=== PATIENT | female | born 1995 | race Caucasian/White ===

== ENCOUNTER 2019-07-13 12:22 | Outpatient (CLI) | payer BC, SELFPAY ==
--- NOTE | ~2019-07-13 | MR_ITS ---
EXAMINATION: MR brain/brain stem wo/w con EXAM DATE: 07/13/2019 13:23 INDICATION: Headache. TECHNIQUE: Magnetic resonance imaging (MRI) of the brain/brain stem obtained without contrast. Sagit wesley T1, axial diffusion, gradient echo (T2*), T1, T2, FLAIR sequences obtained. Patient was then inj ected with 15 cc intravenous Multihance contrast. Axial and coronal postcontrast T1 weighted sequence s obtained. There is no prior study for comparison. FINDINGS: There are no areas of restricted diffusion to suggest acute infarction. There is no acute hemorrhage seen on the T2*, a hemosiderin sensitive sequence. No intraparenchymal brain mass. The ve ntricles are normal in size. There are no extra-axial collections. Flow voids are seen in the cereb ral arteries on the T2-weighted sequences consistent with their expected patency. The orbits are unr emarkable. Soft tissue is unremarkable. There are no areas of abnormal enhancement on the postcont rast images. Small to moderate-sized right maxillary sinus mucous retention cyst. No sinus air-fluid levels. IMPRESSION: 1. Normal brain MRI examination. Reviewed, dictated and finalized at location A. TING SUPERVISOR
[2019-07-13 13:04] LABS: Blood Urea Nitrogen 6 mg/dL (8-26); Estimated Glomerular Filt Rate > 60
== END 2019-07-13 12:23 | disposition home or self-care (01) ==
PROVIDERS: PCP Family Medicine; Visit Provider Nurse Practitioner Family
DX: R51 Headache (principal)
CPT/HCPCS: 70553; A9577

== ENCOUNTER 2019-08-03 10:22 | Emergency (ER) | payer BC, SELFPAY ==
--- NOTE | ~2019-08-03 | XR_ITS ---
EXAMINATION: XR chest 2V DATE: 08/03/2019 11:42 INDICATION: Transient alteration of awareness, heart palpitations TECHNIQUE: AP and lateral views of the chest are obtained. COMPARISON: None available FINDINGS: The lungs are free of acute opacities. There is no pleural effusion or pneumothorax. The ca rdiomediastinal silhouette is normal. The visualized bones and soft tissues are unremarkable. IMPRESSION: 1. No acute cardiopulmonary abnormality. Reviewed, dictated and finalized at location A. H SHEETER
[2019-08-03 10:34] VITALS: BP 132/83; PULSE 100; RESP 17; TEMP 36.5; O2SAT 100
--- NOTE | 2019-08-03 10:44 | ED.SYNCOPE ---
HPI - Syncope General Chief Complaint: Dizziness Stated Complaint: dizzy Time Seen by Provider: 08/03/19 10:32 Source: patient and RN notes reviewed Mode of arrival: ambulatory Limitations: no limitations History of Present Illness HPI narrative: A 23 y/o female presents to the ED started Topamax 1.5 weeks ago dizziness syncope generalized weakness was in [place] on Thursday in the shower and vision became black and lowered herself to the floor was on the floor for a couple seconds rapid HR and dizzy - then started to have an anxiety attack MD complaint: loss of consciousness Related Data Home Medications Medication Instructions Recorded Confirmed cyclobenzaprine 10 mg tablet 10 mg PO ONCE tablet 05/04/19 gabapentin 300 mg capsule 300 mg PO TID 05/04/19 norgestimate 0.25 mg-ethinyl 1 tablet PO DAILY 05/04/19 estradiol 35 mcg tablet naltrexone 3 mg BYMOUTH DAILY 08/03/19 08/03/19 Allergies Allergy/AdvReac Type Severity Reaction Status Date / Time adhesive tape Allergy Rash Verified 08/03/19 10:39 [facility] Social History Social History Smoking status: Never smoker Alcohol intake: never Gender identity (if verbalized by the patient): Female Course Vital Signs Vital signs: Vital Signs Temperature 97.7 F 08/03/19 10:34 Pulse Rate 100 08/03/19 10:34 Respiratory Rate 17 08/03/19 10:34 Blood Pressure 132/83 08/03/19 10:34 Pulse Oximetry 100 08/03/19 10:34 Temperature 97.7 F 08/03/19 10:34 Pulse Rate 100 08/03/19 10:34 Respiratory Rate 17 08/03/19 10:34 Blood Pressure 132/83 08/03/19 10:34 Pulse Oximetry 100 08/03/19 10:34 Discharge Plan Discharge Prescriptions: No Action cholecalciferol (vitamin D3) 50,000 unit capsule 50,000 unit PO WEEKLY Qty: 8 RF: 0 nortriptyline 50 mg capsule 50 mg PO DAILY Qty: 30 RF: 2 cyclobenzaprine 10 mg tablet 10 mg PO ONCE RF: 0 gabapentin 300 mg capsule 300 mg PO TID RF: 0 norgestimate-ethinyl estradiol [Sprintec (28)] 0.25-35 mg-mcg tablet 1 tablet PO DAILY RF: 0 naltrexone 3 mg bottle 3 mg BYMOUTH DAILY RF: 0 phentermine 37.5 mg capsule 37.5 mg PO DAILY Qty: 30 RF: 0
--- NOTE | 2019-08-03 10:48 | ED.DIZZY ---
HPI - Dizziness General Chief Complaint: Dizziness Stated Complaint: dizzy Time Seen by Provider: 08/03/19 10:32 Source: patient and RN notes reviewed Mode of arrival: ambulatory Limitations: no limitations History of Present Illness HPI Narrative: A 23 y/o female presents to the ED with intermittent lightheadedness for the past 6 days. She states that she flew down to [place] early Thursday morning, so she took a nap once she got down there and when she woke up she went to take a shower. She reports once she got in the hot shower that she began to feel lightheaded and her vision began to go black, so she lowered herself to the floor and believes that she had a couple seconds of LOC. She notes that she got up and went to a hockey game and was still feeling lightheaded, generalized weakness, and fatigued. She states that once she got back from the hockey game that she was playing a game when she began to feel anxious and felt her heart racing, so she went and laid down. She reports that she had another episode like this today while she was at work, so she decided to come to the ED. She also notes that she started Topamax about 1.5 weeks ago. She denies any N/V/D or ABD pain. MD elicited complaint: lightheadedness Pertinent past history: anemia Onset (ago): day(s) (6) Timing: intermittent Description: lightheadedness Associated symptoms: syncope, weakness (generalized), palpatations (heart racing) and other (fatigue and anxious) Related Data Home Medications Medication Instructions Recorded Confirmed cyclobenzaprine 10 mg tablet 10 mg PO ONCE tablet 05/04/19 gabapentin 300 mg capsule 300 mg PO TID 05/04/19 norgestimate 0.25 mg-ethinyl 1 tablet PO DAILY 05/04/19 estradiol 35 mcg tablet naltrexone 3 mg BYMOUTH DAILY 08/03/19 08/03/19 Allergies Allergy/AdvReac Type Severity Reaction Status Date / Time adhesive tape Allergy Rash Verified 08/03/19 10:39 Review of Systems Review of Systems: All systems reviewed & are unremarkable except as noted in HPI and below Constitutional: Constitutional: Reports fatigue and Reports weakness (generalized) Cardiovascular: Cardiovascular: Reports lightheadedness and Reports palpitations Gastrointestinal: Gastrointestinal: Denies abdominal pain, Denies diarrhea, Denies nausea and Denies vomiting Psychiatric: Psychiatric: Reports anxiety PMFSH Past Medical History Medical History (Updated 08/03/19 @ 12:45 by Sunil Barker MD) Anemia Anxiety Bipolar 1 disorder Depression Fatigue Fibromyalgia History of ovarian cyst Insomnia Iron deficiency anemia Low vitamin D level Restless legs syndrome (RLS) Thoracic degenerative disc disease Surgical History Surgical History (Updated 08/03/19 @ 11:16 by Alex Silva) No history of previous surgery Social History Social History Smoking status: Never smoker Alcohol intake: never Gender identity (if verbalized by the patient): Female Exam Narrative: Exam Narrative: GENERAL: Well-appearing, well-nourished, and in no acute distress. HEAD: Normocephalic, atraumatic. EYES: PERRLA and EOMI. no nystagmus. ENT: Mucous membranes moist. TM's normal bilaterally. CHEST: Clear to auscultation. No respiratory distress. HEART: Regular rate and rhythm. Normal peripheral pulses. ABDOMEN: Soft, nontender, nondistended. EXTREMITIES: Normal range of motion. No edema. SKIN: Warm, dry, no rash. NEURO: No focal deficits. Alert and oriented x3. Course Course Emergency Course: Appears well. No ectopy on monitor. Has had some dizziness with position change from sitting to standing. Hydrated, still with a little dizziness. Will give some meclizine as patient may be having issues with her inner ear given recent travel. Recommend f/u with PCP, if recurrent issues may need holter monitor. Patient did not describe true hallucinations and the one potential syncopal episode may have been related to anxie
--- NOTE | 2019-08-03 10:54 | ECG_ITS ---
Measurements Intervals [place] Rate: 95 P: 52 WI: 147 QRS: 47 QRSD: 81 T: 25 QT: 338 QTc: 425 Interpretive Statements SINUS RHYTHM BASELINE ARTIFACT- I, II, AVR, AVL, AVF NORMAL ECG Electronically Signed On 08-03-2019 11:47:00 INSURANCE OFFICE MANAGER by Jhonny Pat D.O.
[2019-08-03] MEDS: SODIUM CHLORIDE 0.9% IV 1,000 ML 999 ML IV CONT (11:04)
[2019-08-03 11:07] VITALS: BP 109/79; PULSE 97
[2019-08-03 11:08] VITALS: BP 117/78; PULSE 99
[2019-08-03 11:08] LABS: Basophils Percent Auto 0.7 % (0.2-1.2); Eosinophils Absolute Auto 0.1 K/mm3 (0-0.3); Eosinophils Percent Auto 1.3 % (0-4.4); Hematocrit 41.9 % (37.0-47.0); Hemoglobin 13.5 g/dL (12.0-15.0); Immature Granulocyte Absolute 0.04 K/mm3 (0.00-0.031); Immature Granulocyte Percent A 0.7 % (0-0.5); Lymphocytes Absolute Auto 1.72 K/mm3 (0.9-3.2); Lymphocytes Percent Auto 31.4 % (18.3-44.2); Mean Corpuscular HGB Conc 32.2 g/dl (32-36); Mean Corpuscular Hemoglobin 28.5 pg (26-34); Mean Corpuscular Volume 88.4 fl (80-100); Mean Platelet Volume 8.9 fl (7.4-10.4); Monocytes Absolute Auto 0.5 K/mm3 (0.1-0.6); Monocytes Percent Auto 9.9 % (2.6-8.5); Neutrophils Absolute Auto 3.1 K/mm3 (1.3-6.7); Platelet Count Result 340 k/mm3 (150-375); Red Blood Count 4.74 M/mm3 (4.2-5.4); Red Cell Distribution Width 11.6 % (11.5-14.5); White Blood Count 5.5 K/mm3 (4.5-10.0)
[2019-08-03 11:10] VITALS: BP 113/82; PULSE 110
[2019-08-03 11:20] LABS: Blood Urea Nitrogen 7 mg/dL (7-17); Carbon Dioxide 23 mmol/L (22-30); Chloride 101 mmol/L (98-107); Estimated CRCL calculation 98 ml/min; Estimated Glomerular Filt Rate > 60; Glucose 97 mg/dL (65-105); Potassium 3.8 mmol/L (3.4-5.0); Sodium 139 mmol/L (137-145)
[2019-08-03 11:26] LABS: Add Urine Microscopic? YES; Appearance Urine Cloudy (Clear); Bacteria Urine Trace /hpf; Bilirubin Urine Negative (Negative); Blood Urine Negative (Negative); Color Urine Straw (Yellow); Glucose Urine UA Negative (Negative); Ketones Urine Negative (Negative); Leukocyte Esterase Ur Trace LEU/UL (Negative); Mucus Urine Rare /lpf; Nitrate Urine Negative (Negative); Protein Urine Negative (Negative); RBC Urine 0-2 /hpf (0-2); Specific Grav Ur 1.008 (1.001-1.035); Squamous Epithelial Cell Urine Many /hpf (Few); Urobilinogen Urine Negative mg/dL (<2.0); WBC Urine 0-3 /hpf
[2019-08-03 11:34] LABS: Troponin I < 0.012 ng/mL (0.000-0.034)
[2019-08-03 12:08] VITALS: BP 117/78; PULSE 101; RESP 16; O2SAT 100
[2019-08-03 13:25] VITALS: BP 134/84; PULSE 82; RESP 17; O2SAT 100
== END 2019-08-03 13:26 | disposition home or self-care (01) ==
PROVIDERS: Emergency Provider Emergency Medicine; PCP Family Medicine
DX: R42 Dizziness and giddiness (principal); D64.9 Anemia, unspecified; F41.9 Anxiety disorder, unspecified; F31.9 Bipolar disorder, unspecified; M79.7 Fibromyalgia
CPT/HCPCS: 36415; 71046; 80048; 81001; 81025; 83735; 84484; 85025; 93005; 96360; 99284; J7030

== ENCOUNTER 2019-08-10 14:22 | Outpatient (CLI) | payer BC, SELFPAY ==
[2019-08-10 15:44] LABS: Thyroid Stimulating Hormone 0.418 uIU/mL (0.465-4.680)
[2019-08-10 15:49] LABS: Vitamin D 25 Hydroxy 79.8 ng/mL
[2019-08-12 09:30] LABS: CMV IgG Antibody <0.60 U/mL (<0.60)
[2019-08-13 13:26] LABS: CMV IgM Antibody <30.00 AU/mL (<30.00)
[2019-08-15 07:37] LABS: EBV Nuclear Ab Interpretation Past; EBV Virus Capsid Ag IgM Ab <36.00 U/mL (<36.00)
== END 2019-08-10 14:23 | disposition home or self-care (01) ==
PROVIDERS: PCP Family Medicine; Visit Provider Nurse Practitioner Family
DX: R53.83 Other fatigue (principal)
CPT/HCPCS: 36415; 82306; 82607; 84443; 86644; 86645; 86664; 86665

== ENCOUNTER 2019-08-19 07:37 | Outpatient (CLI) | payer BC, SELFPAY ==
--- NOTE | ~2019-08-19 | US_ITS ---
EXAMINATION: US abdomen complete EXAM DATE: 08/19/2019 08:37 INDICATION: Left upper quadrant abdominal pain. TECHNIQUE: Multiple grayscale and Doppler images of the complete abdomen were obtained (by a technolo gist who performed the scan) and subsequently reviewed. Comparison is made to prior examination from 08/14/2016. FINDINGS: The abdominal aorta is normal in caliber. Visualized portion IVC is patent. The pancreatic head a nd body are normal in appearance. The pancreatic tail is not visualized. The liver has normal echogenicity and contour. There are no focal liver lesions identified. There is no evidence of intrahepatic biliary duct dilation. Portal venous flow was seen in the hepatopedal , normal direction and has normal Doppler waveform. Common bile duct measures 10.7 x 4.1 x 5.3 mm, which is normal. The gallbladder wall is normal in thi ckness, with expected amount of distention. No sonographic evidence of pericholecystic fluid. There is no cholelithiases. Technologist performing exam reports patient did not demonstrate sonographic M urphy's sign. Please note that this sign is less reliable in patients who have received pain medicat ion. Right kidney: There is normal contour and echogenicity. It measures 10.7 x 4.6 x 4.8 centimeters. There are no focal renal lesions identified. There is no hydronephrosis. Left kidney: There is normal contour and echogenicity. It measures 10.7 x 4.1 x 5.3 centimeters. T here are no focal renal lesions identified. There is no hydronephrosis. The spleen measures 10.5 centimeters and is morphologically normal. IMPRESSION: 1. Unremarkable complete abdominal ultrasound exam. Reviewed, dictated and finalized at location B.
== END 2019-08-19 07:38 | disposition home or self-care (01) ==
PROVIDERS: PCP Family Medicine; Visit Provider Nurse Practitioner Family
DX: R10.12 Left upper quadrant pain (principal)
CPT/HCPCS: 76700

== ENCOUNTER 2019-08-24 15:30 | Outpatient (CLI) | payer BC, SELFPAY ==
--- NOTE | 2019-08-29 15:56 | WPDHOLTEREM ---
Holter/Event Monitor Holter/Event Monitor Date of procedure: 08/24/19 Procedure Type: 24 hour holter monitor Indications: Syncope Conclusion: 1. 24 hour holter monitor on 08/24/19. 2. Underlying rhythm is sinus rhythm. HR range 50-145 bpm; average HR 94 bpm. 3. No premature supraventricular complex. No supraventricular tachycardia. 4. No premature ventricular complex. No ventricular tachycardia. 5. No sinoatrial or atrioventricular blocks. No significant pauses greater than 2 seconds. 6. Patient reports symptoms of dizziness which demonstrate sinus rhythm, HR range 93-104 bpm.
== END 2019-08-24 15:31 | disposition home or self-care (01) ==
LOC: ANHCARD 15:33
PROVIDERS: PCP Family Medicine; Visit Provider Nurse Practitioner Family
DX: R42 Dizziness and giddiness (principal); R55 Syncope and collapse
CPT/HCPCS: 93225; 93226

== ENCOUNTER 2019-11-14 09:07 | Outpatient (CLI) | payer BC, SELFPAY ==
[2019-11-14 09:57] LABS: Blood Urea Nitrogen 8 mg/dL (7-17); Calcium 9.1 mg/dL (8.4-10.2); Carbon Dioxide 29 mmol/L (22-30); Chloride 103 mmol/L (98-107); Estimated Glomerular Filt Rate > 60; Glucose 96 mg/dL (65-105); Potassium 4.1 mmol/L (3.4-5.0); Sodium 136 mmol/L (137-145)
== END 2019-11-14 09:08 | disposition home or self-care (01) ==
LOC: ANHLAB 09:08
PROVIDERS: PCP Family Medicine; Visit Provider Nurse Practitioner Family
DX: R39.9 Unspecified symptoms and signs involving the genitourinary system (principal)
CPT/HCPCS: 36415; 80048

== ENCOUNTER 2019-11-17 17:51 | Outpatient (CLI) | payer BC, SELFPAY ==
--- NOTE | ~2019-11-17 | XR_ITS ---
EXAMINATION: XR abdomen/kub 1V DATE: 11/17/2019 18:19 INDICATION: Unspecified abdominal pain. TECHNIQUE: A supine view of the abdomen on 2 radiographs was obtained. COMPARISON: CT abdomen and pelvis 04/28/2013 FINDINGS: There are no dilated loops of bowel. There is a moderate volume of stool in the colon. Ther e is a 2 mm calcification in left pelvis. IMPRESSION: 1. Normal bowel gas pattern. 2. 2 mm calcification in left pelvis, most likely a phlebolith. Distal ureteral stone cannot be exclu ded. Reviewed, dictated and finalized at location A. IMPRESSION: 1. Normal bowel gas pattern. 2. 2 mm calcification in left pelvis, most likely a phlebolith. Distal ureteral stone cannot be excluded.
== END 2019-11-17 17:52 | disposition home or self-care (01) ==
LOC: ANHIMG 17:52
PROVIDERS: PCP Family Medicine; Visit Provider Nurse Practitioner Family
DX: R10.9 Unspecified abdominal pain (principal)
CPT/HCPCS: 74018

== ENCOUNTER 2019-11-27 09:38 | Outpatient (CLI) | payer BC, SELFPAY ==
--- NOTE | ~2019-11-27 | CT_ITS ---
EXAMINATION: CT abdomen pelvis wo con DATE: 11/27/2019 09:57 INDICATION: Flank pain TECHNIQUE: Computed tomography (CT) of the abdomen and pelvis was performed without intravenous contr ast. The dose-length product was 632.40 mGy-cm. Automated exposure control and iterative reconstructi on technique were employed. COMPARISON: CT dated 04/28/2013 FINDINGS: Lung bases are unremarkable. No significant pleural or pericardial effusion. Heart size nor mal. No significant vascular abnormality. No lymphadenopathy. The liver, spleen, pancreas, adrenal glands and kidneys are unremarkable. Gallbladder is present. Nor mal appendix. No abnormal pelvic masses or fluid collections. No renal or ureteral stones are identif ied. No hydronephrosis. No abnormal pelvic masses or fluid collections. Nonobstructive bowel gas trini andrew. No free air or free fluid. Small fat-containing umbilical hernia. IMPRESSION: 1. No acute abdominal abnormality. Reviewed, dictated and finalized at location A.
== END 2019-11-27 09:39 | disposition home or self-care (01) ==
PROVIDERS: PCP Family Medicine; Visit Provider Nurse Practitioner Family
DX: R10.9 Unspecified abdominal pain (principal); R93.5 Abnormal findings on diagnostic imaging of other abdominal regions, including retroperitoneum
CPT/HCPCS: 74176

== ENCOUNTER 2019-11-28 08:12 | Outpatient (CLI) | payer BC, SELFPAY ==
[2019-11-28 08:39] LABS: Blood Urea Nitrogen 9 mg/dL (7-17); Calcium 9.2 mg/dL (8.4-10.2); Carbon Dioxide 28 mmol/L (22-30); Chloride 105 mmol/L (98-107); Estimated Glomerular Filt Rate > 60; Glucose 107 mg/dL (65-105); Potassium 3.9 mmol/L (3.4-5.0); Sodium 138 mmol/L (137-145)
== END 2019-11-28 08:13 | disposition home or self-care (01) ==
LOC: ANHLAB 08:13
PROVIDERS: PCP Family Medicine; Visit Provider Nurse Practitioner Family
DX: E87.1 Hypo-osmolality and hyponatremia (principal)
CPT/HCPCS: 36415; 80048

== ENCOUNTER 2019-11-30 09:25 | Outpatient (CLI) | payer BC, SELFPAY ==
[2019-11-30 10:30] LABS: Blood Urea Nitrogen 11 mg/dL (7-17); Carbon Dioxide 28 mmol/L (22-30); Chloride 104 mmol/L (98-107); Estimated Glomerular Filt Rate > 60; Glucose 105 mg/dL (65-105); Potassium 4.5 mmol/L (3.4-5.0); Sodium 137 mmol/L (137-145)
[2019-12-01 06:57] LABS: Rapid Plasma Reagin Non-Reactive (NonReactive)
== END 2019-11-30 09:26 | disposition home or self-care (01) ==
LOC: ANHLAB 09:26
PROVIDERS: PCP Family Medicine; Visit Provider Nurse Practitioner Family
DX: N39.0 Urinary tract infection, site not specified (principal); N89.8 Other specified noninflammatory disorders of vagina; R73.01 Impaired fasting glucose
CPT/HCPCS: 36415; 80048; 86592

== ENCOUNTER 2020-02-05 09:26 | Outpatient (CLI) | payer BC, SELFPAY ==
--- NOTE | ~2020-02-05 | MR_ITS ---
EXAMINATION: MR lumbar spine wo con DATE: 02/05/2020 11:12 INDICATION: Low back pain. TECHNIQUE: Magnetic resonance imaging (MRI) of the lumbar spine was performed without intravenous con trast. Sequences included sagittal T2-weighted FSE, sagittal T2-weighted FS FSE, sagittal T1-weighted FSE, and axial T2-weighted FSE. COMPARISON: Lumbar spine MRI 04/09/2015 FINDINGS: There are Schmorl's nodes at T11-T12 and T12-L1. Intervertebral disc heights are normal. Th e distal spinal cord signal intensity is normal. The conus medullaris is at T12-L1. The following dis c levels are specifically discussed: L1-L2: The disc does not extend beyond the endplate margin. There is no facet joint osteoarthritis. T here is no neural foraminal stenosis. There is no central canal stenosis. L2-L3: The disc does not extend beyond the endplate margin. There is mild left facet joint osteoarthr itis. There is no neural foraminal stenosis. There is no central canal stenosis. L3-L4: The disc does not extend beyond the endplate margin. There is mild bilateral facet joint osteo arthritis. There is no neural foraminal stenosis. There is no central canal stenosis. L4-L5: The disc does not extend beyond the endplate margin. There is mild bilateral facet joint osteo arthritis. There is no neural foraminal stenosis. There is no central canal stenosis. L5-S1: There is a central protrusion. There is mild bilateral facet joint osteoarthritis. There is no neural foraminal stenosis. There is no central canal stenosis. IMPRESSION: 1. Mild lumbar spondylosis, stable from 04/09/2015. Reviewed, dictated and finalized at location A.
== END 2020-02-05 09:27 | disposition home or self-care (01) ==
PROVIDERS: PCP Family Medicine; Visit Provider Nurse Practitioner Family
DX: M47.896 Other spondylosis, lumbar region (principal)
CPT/HCPCS: 72148

== ENCOUNTER 2020-04-09 14:17 | Emergency (ER) | payer BC, SELFPAY ==
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
[2020-04-09 14:23] VITALS: BP 133/77; PULSE 76; RESP 16; TEMP 36.3; O2SAT 98
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
[2020-04-09] MEDS: diazePAM (*CRX) 5 MG TABLET PO (15:50)
[2020-04-09] MEDS: KETOROLAC (*BKC) 60 MG/2 ML VIAL IM (15:52)
[2020-04-09 17:14] VITALS: BP 125/76; PULSE 70; RESP 18; O2SAT 100
== END 2020-04-09 17:16 | disposition home or self-care (01) ==
PROVIDERS: Emergency Provider Emergency Medicine; PCP Family Medicine
DX: S16.1XXA Strain of muscle, fascia and tendon at neck level, initial encounter (principal); S29.9XXA Unspecified injury of thorax, initial encounter; Z86.2 Personal history of diseases of the blood and blood-forming organs and certain disorders involving the immune mechanism; M79.7 Fibromyalgia; G25.81 Restless legs syndrome; M51.34 Other intervertebral disc degeneration, thoracic region; V49.40XA Driver injured in collision with unspecified motor vehicles in traffic accident, initial encounter
CPT/HCPCS: 72125; 72128; 72131; 81025; 96372; 99284; A9270; J1885

== ENCOUNTER 2020-05-28 13:25 | Outpatient (CLI) | payer BC, SELFPAY ==
--- NOTE | ~2020-05-28 | MR_ITS ---
EXAMINATION: MR thoracic spine wo con EXAM DATE: 05/28/2020 14:53 INDICATION: Pain In Thoracic Spine. TECHNIQUE: Multi-sequential, multiplanar MR images of the thoracic spine were obtained without contra st. Sagittal T1, T2, T2 fat saturation, axial T2 weighted images reviewed. Comparison is made to margie or examination from 10/30/2016. FINDINGS: No thoracic scoliosis. There are no suspicious marrow signal abnormalities. Mild thoracic f acet arthropathy. Small disc bulges and tiny protrusions not significantly changed, mild thoracic spo ndylosis. Mild chronic compression fracture of T6 vertebral body also unchanged. Thoracic central can al and neural foramen are widely patent. The spinal cord signal intensity and intrinsic morphology is normal. Paraspinal soft tissue is unremarkable. IMPRESSION: Chronic mild T6 compression and mild spondylosis unchanged. Reviewed, dictated and finalized at location B. T HARVEST MACHINE OPERATOR
== END 2020-05-28 13:26 | disposition home or self-care (01) ==
PROVIDERS: PCP Family Medicine; Visit Provider Nurse Practitioner Family
DX: M47.894 Other spondylosis, thoracic region (principal)
CPT/HCPCS: 72146

== ENCOUNTER 2020-06-19 08:51 | Outpatient (CLI) | payer BC, SELFPAY ==
[2020-06-19 09:20] LABS: Hematocrit 38.4 % (37.0-47.0); Mean Corpuscular HGB Conc 33.9 g/dl (32-36); Mean Corpuscular Hemoglobin 30.7 pg (26-34); Mean Corpuscular Volume 90.8 fl (80-100); Mean Platelet Volume 9.1 fl (7.4-10.4); Platelet Count Result 295 k/mm3 (150-375); Red Blood Count 4.23 M/mm3 (4.2-5.4); Red Cell Distribution Width 11.8 % (11.5-14.5); White Blood Count 6.8 K/mm3 (4.5-10.0)
[2020-06-19 09:36] LABS: Anion Gap 5 mmol/L (8-16); Blood Urea Nitrogen 10 mg/dL (7-17); Calcium 9.4 mg/dL (8.4-10.2); Carbon Dioxide 28 mmol/L (22-30); Chloride 105 mmol/L (98-107); Estimated Glomerular Filt Rate > 60; Glucose 97 mg/dL (65-105); Potassium 4.2 mmol/L (3.4-5.0); Sodium 138 mmol/L (137-145)
[2020-06-19 09:51] LABS: Iron 97 ug/dL (37-170)
[2020-06-19 10:00] LABS: Percent Iron Saturation 27 % (20-50)
[2020-06-19 10:05] LABS: Thyroid Stimulating Hormone 0.784 uIU/mL (0.465-4.680)
[2020-06-19 10:09] LABS: Free T4 Free Thyroxine 1.06 ng/mL (0.78-2.19)
== END 2020-06-19 08:52 | disposition home or self-care (01) ==
PROVIDERS: PCP Family Medicine; Visit Provider Physician Assistant Medical
DX: R73.09 Other abnormal glucose (principal); R63.4 Abnormal weight loss; D64.9 Anemia, unspecified; D50.8 Other iron deficiency anemias
CPT/HCPCS: 36415; 80048; 82607; 83540; 83550; 84439; 84443; 85027

== ENCOUNTER 2024-11-15 12:36 | Outpatient (CLI) | payer BC, SELFPAY ==
--- NOTE | ~2024-11-15 | US_ITS ---
Abdominal Sonogram: Real-time sonographic imaging of the abdomen was performed. Clinical History: Abdominal pain Findings: The liver appears normal with no evidence of mass lesion or bile duct dilatation. Main por wesley vein demonstrates normal direction of flow. The spleen is normal in size without evidence of foca l lesion. The gallbladder is well distended, and appears normal with no evidence of gallstone or wal l thickening. The common bile duct measures 4 mm. The visualized pancreas, aorta, and IVC are unrema rkable. The right kidney measures 9.7 cm in length and the left kidney measures 9.6 cm. There is no hydronephrosis or renal calculus. No abnormality seen at the region of the scar. Impression: Unremarkable abdominal ultrasound. Reviewed, dictated and finalized at location . Impression: Unremarkable abdominal ultrasound.
== END 2024-11-15 12:37 | disposition home or self-care (01) ==
LOC: MICIMG 12:40
PROVIDERS: PCP Family Medicine; Visit Provider Nurse Practitioner Family
DX: R10.9 Unspecified abdominal pain (principal); R10.2 Pelvic and perineal pain
CPT/HCPCS: 76700